=== PATIENT | male | born 1960 | race Caucasian/White ===

== ENCOUNTER 2017-05-20 13:21 | Emergency (ER) | payer OTHER ==
[2010-04-01 01:25] VITALS: BMI 30.1
== END 2017-05-20 16:59 | disposition home or self-care (01) ==
LOC: D.ER 13:21
DX: M54.5 Low back pain (principal); S39.012A Strain of muscle, fascia and tendon of lower back, initial encounter; W01.0XXA Fall on same level from slipping, tripping and stumbling without subsequent striking against object, initial encounter; Y93.K1 Activity, walking an animal; Y92.89 Other specified places as the place of occurrence of the external cause; M62.838 Other muscle spasm

== ENCOUNTER 2017-06-19 17:55 | Emergency (ER) | payer OTHER ==
[2010-04-01 01:25] VITALS: BMI 30.1
== END 2017-06-19 20:10 | disposition home or self-care (01) ==
LOC: D.ER 17:55
DX: M25.562 Pain in left knee (principal); W19.XXXA Unspecified fall, initial encounter; Y93.89 Activity, other specified; Y92.89 Other specified places as the place of occurrence of the external cause

== ENCOUNTER 2017-07-30 17:31 | Emergency (ER) | payer OTHER ==
[2010-04-01 01:25] VITALS: BMI 30.1
[2017-07-30 18:23] LABS: UDS - AMPHET NEGATIVE QUAL (NEGATIVE); UDS - BARB NEGATIVE QUAL (NEGATIVE); UDS - BENZO POSITIVE QUAL (NEGATIVE); UDS - COCAINE NEGATIVE QUAL (NEGATIVE); UDS - OPIATE POSITIVE QUAL (NEGATIVE); UDS - PCP NEGATIVE QUAL (NEGATIVE); UDS - THC NEGATIVE QUAL (NEGATIVE)
== END 2017-07-30 19:22 | disposition home or self-care (01) ==
LOC: D.ER 17:31
PROVIDERS: Family Medicine
DX: Z76.0 Encounter for issue of repeat prescription (principal)

== ENCOUNTER 2017-08-18 14:20 | Emergency (ER) | payer OTHER ==
[2010-04-01 01:25] VITALS: BMI 30.1
== END 2017-08-18 19:40 | disposition home or self-care (01) ==
LOC: D.ER 14:20
DX: M54.16 Radiculopathy, lumbar region (principal)

== ENCOUNTER 2017-09-22 16:43 | Emergency (ER) | payer OTHER ==
[2010-04-01 01:25] VITALS: BMI 30.1
== END 2017-09-22 18:22 | disposition home or self-care (01) ==
LOC: D.ER 16:43
DX: S06.0X9A Concussion with loss of consciousness of unspecified duration, initial encounter (principal); W10.9XXA Fall (on) (from) unspecified stairs and steps, initial encounter; Y93.89 Activity, other specified; Y92.019 Unspecified place in single-family (private) house as the place of occurrence of the external cause; S00.01XA Abrasion of scalp, initial encounter; S16.1XXA Strain of muscle, fascia and tendon at neck level, initial encounter; R07.81 Pleurodynia